=== PATIENT | male | born 1985 | race Hispanic/Latino ===

== ENCOUNTER 2019-06-06 20:52 | Emergency (ER) | payer SELFPAY ==
[2019-06-06] MEDS ORDERED: ACETAMINOPHEN 500 MG TAB ONE (21:53)
[2019-06-06 22:04] LABS: Absolute Lymphocytes (CBC) 4.3 K/uL (0.7-4.9); Basophils % 0.8 % (0-1.3); Lymphocytes % 32.6 % (15.3-44.8); MPV 10.1 fL (7.6-11.3); RBC Red Blood Cell Count 5.45 M/uL (4.33-5.43)
[2019-06-06 22:27] LABS: Potassium 3.8 mmol/L (3.5-5.1)
--- NOTE | 2019-06-06 22:59 | EDPHYS ---
Physician Documentation [facility] Name: Rolan Ac Age: 34 yrs Sex: Male : 1985 Arrival Date: 06/06/2019 Time: 20:55 Bed 13 Private MD: ED Physician Mark Chávez HPI: 06/06 21:38 This 34 yrs old Male presents to ER via Ambulatory with complaints of Cough, pkl Congestion. 21:38 The patient or guardian reports cough, with no sputum. Onset: The symptoms/episode pkl began/occurred 1 week(s) ago. Associated signs and symptoms: Pertinent positives: eyes itchy, sneezing. Historical: - Allergies: 21:02 No Known Allergies; bb - Home Meds: 21:02 metformin Oral [Active]; Lovastatin Oral [Active]; Lisinopril Oral [Active]; bb Glimepiride Oral [Active]; - PMHx: 21:02 Diabetes - NIDDM; Hypertension; bb - PSHx: 21:02 None; bb - Immunization history:: Adult Immunizations up to date. - Social history:: Smoking status: Patient/guardian denies using tobacco. - Ebola Screening: : No symptoms or risks identified at this time. ROS: 21:38 Eyes: Negative for injury, pain, redness, and discharge, ENT: Negative for injury, pkl pain, and discharge, Neck: Negative for injury, pain, and swelling, Cardiovascular: Negative for chest pain, palpitations, and edema, Respiratory: Negative for shortness of breath, cough, wheezing, and pleuritic chest pain, Abdomen/GI: Negative for abdominal pain, nausea, vomiting, diarrhea, and constipation, Back: Negative for injury and pain, : Negative for injury, bleeding, discharge, and swelling, MS/Extremity: Negative for injury and deformity, Skin: Negative for injury, rash, and discoloration, Neuro: Negative for headache, weakness, numbness, tingling, and seizure. Exam: 21:38 Head/Face: Normocephalic, atraumatic. Eyes: Pupils equal round and reactive to light, pkl extra-ocular motions intact. Lids and lashes normal. Conjunctiva and sclera are non-icteric and not injected. Cornea within normal limits. Periorbital areas with no swelling, redness, or edema. ENT: Nares patent. No nasal discharge, no septal abnormalities noted. Tympanic membranes are normal and external auditory canals are clear. Oropharynx with no redness, swelling, or masses, exudates, or evidence of obstruction, uvula midline. Mucous membranes moist. Neck: Trachea midline, no thyromegaly or masses palpated, and no cervical lymphadenopathy. Supple, full range of motion without nuchal rigidity, or vertebral point tenderness. No Meningismus. Chest/axilla: Normal chest wall appearance and motion. Nontender with no deformity. No lesions are appreciated. Cardiovascular: Regular rate and rhythm with a normal S1 and S2. No gallops, murmurs, or rubs. Normal PMI, no JVD. No pulse deficits. Respiratory: Lungs have equal breath sounds bilaterally, clear to auscultation and percussion. No rales, rhonchi or wheezes noted. No increased work of breathing, no retractions or nasal flaring. Abdomen/GI: Soft, non-tender, with normal bowel sounds. No distension or tympany. No guarding or rebound. No evidence of tenderness throughout. Back: No spinal tenderness. No costovertebral tenderness. Full range of motion. Skin: Warm, dry with normal turgor. Normal color with no rashes, no lesions, and no evidence of cellulitis. MS/ Extremity: Pulses equal, no cyanosis. Neurovascular intact. Full, normal range of motion. Neuro: Awake and alert, GCS 15, oriented to person, place, time, and situation. Cranial nerves II-XII grossly intact. Motor strength 5/5 in all extremities. Sensory grossly intact. Cerebellar exam normal. Normal gait. Vital Signs: 21:02 BP 135 / 100; Pulse 84; Resp 16 S; Temp 98.1(O); Pulse Ox 95% on R/A; Weight 95.25 kg bb (R); Height 5 ft. 3 in. (160.02 cm) (R); Pain 8/10; 22:50 BP 127 / 87; Pulse 79; Resp 16; Pulse Ox 96% on R/A; jb4 21:02 Body Mass Index 37.20 (95.25 kg, 160.02 cm) bb MDM: 21:07 Patient medically screened. pkl 22:52 Data reviewed: vital signs, nurses notes, lab test result(s), radiologic studies, plain pkl films. 10/14 21:04 Order name: Flu 06/06 21:04 Order name: Strep 06/06 21:05 Order name: Influenza Screen (A ; Complete Time: 22:46 EDMS 06/06 21:05 Order name: Group A Streptococcus Rapid Sc; Complete Time: 22:46 EDMS 06/06 21:15 Order name: Chem 7; Complete Time: 22:46 pkl 06/06 21:15 Order name: XRAY CXR (1 view); Complete Time: 01:47 pkl 06/06 21:37 Order name: Throat Culture EDMS 06/06 22:00 Order name: CBC with Automated Diff; Complete Time: 22:52 EDMS Administered Medications: 22:00 Drug: Tylenol 1000 mg Route: PO; rv 22:30 Follow up: Response: No adverse reaction; Pain is decreased jb4 23:22 Drug: Rocephin (cefTRIAXone) 1 grams Route: IM; Site: right gluteus; jb4 23:41 Follow up: Response: No adverse reaction jb4 Disposition: 06/06/19 22:58 Discharged to Home. Impression: Bronchitis. Possible early pneumonia. Diabetes. Leukocytosis. - Condition is Stable. - Prescriptions for Zithromax Z- Driss 250 mg Oral Tablet - take 1 tablet by ORAL route as directed for 5 days Day 1 - take two (2) tablets one time. Day 2, 3, 4 , 5 take one (1) tablet once daily.; 6 tablet. Guaifenesin AC 10- 100 mg/5 mL Oral Liquid - take 10 milliliters by ORAL route every 8 hours As needed; 120 milliliter. - Medication Reconciliation Form, Thank You Letter, Antibiotic Education, Prescription Opioid Use form. - Follow up: Private Physician; When: 2 - 3 days; Reason: Re-evaluation by your physician. - Problem is new. - Symptoms are unchanged. Signatures: Dispatcher [employer] EDMS Mark Chávez MD MD pkl Leah Espinal, TERRY RN Reddy Elizalde, RN RN jb4 Aleks Garcia, RN RN rv Corrections: (The following items were deleted from the chart) 22:50 21:15 CBC+H.LAB.BRZ ordered. EDMS EDMS 22:50 22:46 CBC+H.LAB.BRZ reviewed. pkl EDMS 23:42 22:58 06/06/2019 22:58 Discharged to Home. Impression: Bronchitis. Possible early jb4 pneumonia. Diabetes. Leukocytosis. Condition is Stable. Forms are Medication Reconciliation Form, Thank You Letter, Antibiotic Education, Prescription Opioid Use. Follow up: Private Physician; When: 2 - 3 days; Reason: Re-evaluation by your physician. Problem is new. Symptoms are unchanged. pkl
--- NOTE | 2019-06-06 22:59 | ER ---
Nurse's Notes [facility] Name: Rolan Ac Age: 34 yrs Sex: Male : 1985 Arrival Date: 06/06/2019 Time: 20:55 Bed 13 Private MD: Diagnosis: Bronchitis. Possible early pneumonia. Diabetes. Leukocytosis Presentation: 06/06 21:00 Presenting complaint: Patient states: he has been having cold type symptoms for approx bb a week with runny nose, cough, sore throat and sneezing, has been taking OTC medications with no relief now he is having difficulty breathing with chest pain and a headache. Transition of care: patient was not received from another setting of care. Resp Distress? No respiratory distress is noted at this time. Onset of symptoms was May 30, 2019. Risk Assessment: Do you want to hurt yourself or someone else? Patient reports no desire to harm self or others. Initial Sepsis Screen: Does the patient meet any 2 criteria? No. Patient's initial sepsis screen is negative. Does the patient have a suspected source of infection? No. Patient's initial sepsis screen is negative. Care prior to arrival: None. 21:00 Method Of Arrival: Ambulatory bb 21:00 Acuity: SHAKILA 4 bb Triage Assessment: 21:02 General: Appears in no apparent distress. Behavior is calm, cooperative. Pain: bb Complains of pain in head and chest pain Pain currently is 8 out of 10 on a pain scale. Neuro: Level of Consciousness is awake, alert, obeys commands, Oriented to person, place, time, situation. Cardiovascular: No deficits noted. Respiratory: Respiratory effort is even, unlabored, Respiratory pattern is regular, Breath sounds are clear bilaterally. GI: No signs and/or symptoms were reported involving the gastrointestinal system. Derm: Skin is pink, warm \T\ dry. Musculoskeletal: Circulation, motion, and sensation intact. Historical: - Allergies: 21:02 No Known Allergies; bb - Home Meds: 21:02 metformin Oral [Active]; Lovastatin Oral [Active]; Lisinopril Oral [Active]; bb Glimepiride Oral [Active]; - PMHx: 21:02 Diabetes - NIDDM; Hypertension; bb - PSHx: 21:02 None; bb - Immunization history:: Adult Immunizations up to date. - Social history:: Smoking status: Patient/guardian denies using tobacco. - Ebola Screening: : No symptoms or risks identified at this time. Screenin:43 Abuse screen: Denies threats or abuse. Denies injuries from another. Nutritional rv screening: No deficits noted. Tuberculosis screening: No symptoms or risk factors identified. Fall Risk None identified. Assessment: 21:42 General: Appears in no apparent distress. comfortable, Behavior is calm, cooperative. rv Pain: Denies pain. Neuro: Level of Consciousness is awake, alert, obeys commands, Oriented to person, place, time, situation. Cardiovascular: Patient's skin is warm and dry. Respiratory: Airway is patent. Respiratory: Breath sounds are clear bilaterally. GI: No signs and/or symptoms were reported involving the gastrointestinal system. : No signs and/or symptoms were reported regarding the genitourinary system. EENT: No signs and/or symptoms were reported regarding the EENT system. Derm: Skin is intact. Musculoskeletal: No signs and/or symptoms reported regarding the musculoskeletal system. 22:50 Reassessment: Patient appears in no apparent distress at this time. Patient and/or jb4 family updated on plan of care and expected duration. Pain level reassessed. Patient is alert, oriented x 3, equal unlabored respirations, skin warm/dry/pink. 23:22 Reassessment: Patient appears in no apparent distress at this time. Patient and/or jb4 family updated on plan of care and expected duration. Pain level reassessed. Patient is alert, oriented x 3, equal unlabored respirations, skin warm/dry/pink. PT verbalized understanding of d/c and follow up instructions. D/c pending shot time. Vital Signs: 21:02 BP 135 / 100; Pulse 84; Resp 16 S; Temp 98.1(O); Pulse Ox 95% on R/A; Weight 95.25 kg bb (R); Height 5 ft. 3 in. (160.02 cm) (R); Pain 8/10; 22:50 BP 127 / 87; Pulse 79; Resp 16; Pulse Ox 96% on R/A; jb4 21:02 Body Mass Index 37.20 (95.25 kg, 160.02 cm) bb ED Course: 20:55 Patient arrived in ED. ds1 21:01 Triage completed. bb 21:02 Arm band placed on Patient placed in an exam room, on pulse oximetry. flu and strep bb swab obtained and sent to lab. Family accompanied patient. 21:07 Mark Chávez MD is Attending Physician. geronimo 21:42 Aleks Garcia, TERRY is Primary Nurse. rv 21:43 Call light in reach. Cardiac monitoring not applicable on this patient. rv 21:43 No provider procedures requiring assistance completed. Patient did not have IV access rv during this emergency room visit. 21:54 Chem 7 Sent. rv 22:06 XRAY CXR (1 view) In Process Unspecified. EDMS Administered Medications: 22:00 Drug: Tylenol 1000 mg Route: PO; rv 22:30 Follow up: Response: No adverse reaction; Pain is decreased jb4 23:22 Drug: Rocephin (cefTRIAXone) 1 grams Route: IM; Site: right gluteus; jb4 23:41 Follow up: Response: No adverse reaction jb4 Outcome: 22:58 Discharge ordered by . pkjr 23:40 Discharged to home ambulatory, with family. jb4 23:40 Condition: stable 23:40 Discharge instructions given to patient, family, Instructed on discharge instructions, follow up and referral plans. medication usage, Demonstrated understanding of instructions, follow-up care, medications, Prescriptions given X 2. 23:42 Patient left the ED. jb4 Signatures: Dispatcher [employer] EDMS Mark Chávez MD MD pkl [place], Demi ds1 Leah Espinal RN RN Reddy Elizalde RN RN jb4 Aleks Garcia, TERRY RN rv
[2019-06-06] MEDS ORDERED: CEFTRIAXONE 1000 MG/VIAL ONE (23:12)
[2019-06-06] MEDS ORDERED: WATER FOR INJ,STERILE 10 ML ONE (23:12)
--- NOTE | 2019-06-06 23:39 | RAD REPORT ---
EXAM DESCRIPTION: RAD - Chest Single View - 06/06/2019 10:05 pm CLINICAL HISTORY: COUGH Chest pain. COMPARISON: Chest Single View dated 01/03/2017; CHEST PA AND LAT 2 VIEW dated 06/10/2012 FINDINGS: Portable technique limits examination quality. The lungs are grossly clear. The heart is normal in size. No displaced fractures. IMPRESSION: No acute intrathoracic process suspected.
[2019-06-07 01:22] VITALS: TEMP 98.1
[2019-06-07 01:23] VITALS: BP 127/87; O2SAT 96
== END 2019-06-06 23:42 | disposition home or self-care (01) ==
LOC: ER 20:52
DX: J40 Bronchitis, not specified as acute or chronic (principal); D72.829 Elevated white blood cell count, unspecified; E11.9 Type 2 diabetes mellitus without complications; I10 Essential (primary) hypertension
CPT/HCPCS: 71045; 80048; 85025; 87070; 87081; 87804; 96372; 99284

== ENCOUNTER → 2023-11-05 | Emergency (ER) | payer SELFPAY ==
[~2023-11-05] MED LIST: ACETAMINOPHEN 500 MG TAB ONE; DIPHENHYDRAMINE 50 MG/ML VIAL ONE; KETOROLAC 30 MG/ML INJ ONE; METOCLOPRAMIDE 10 MG/2mL INJ ONE; NA CHLORIDE 0.9% 1,000 ML ONE; ONDANSETRON 4 MG/2 ML VIAL ONE; dexAMETHasone 10 MG/ML VIAL ONE
--- OUTSIDE RECORDS SUMMARY | 2023-11-05 18:20 | XMS REPORT | Continuity of Care Document ---
Author Name Unknown Address [address] [facility] [address] [place] [address] [facility] Address [address] [facility] [address] [place] [address] Care Team Providers Care Cell Stripper Final Name Role Phone Unavailable Unavailable Unavailable Encounters Start Date/Time End Date/Time Encounter Type Admission Type Attending Clinicians Care Facility Care Department Encounter ID Source 2023-11-02 08:38:38 2023-11-02 08:38:38 Outpatient SFA SFA [id number] Matthew Prado 2023-10-09 14:48:36 2023-10-09 14:48:36 Outpatient SFA SFA 6 Matthew Prado 2023-10-02 14:21:16 2023-10-02 14:21:16 Outpatient SFA SFA [id number] Matthew Prado 2023-06-08 14:40:05 2023-06-08 14:40:05 Outpatient SFA SFA [id number] Matthew Prado 2023-05-11 11:07:16 2023-05-11 11:07:16 Outpatient SFA SFA [id number] Matthew Prado 2022-12-27 12:59:27 2022-12-27 12:59:27 Outpatient SFA SFA [id number] Matthew Prado 2022-06-06 13:33:04 2022-06-06 13:33:04 Outpatient SFA SFA [id number] Matthew Prado 2022-06-02 10:11:05 2022-06-02 10:11:05 Outpatient SFA SFA [id number] Matthew Prado Results Test Description Test Time Test Comments Results Result Co mments Source LIPID [id number] 04:41:41* Test Item Value Reference Range Interpretation Comme nts CHOLESTEROL (test code = 2210) 222 MG/DL <200 H TRIGLYCERIDES (test code = 2232) 471 MG/DL <150 H HDL CHOLESTEROL (test code = 0) 35 MG/DL >39 L CALC LDL CHOL (test code = 2237) (NOTE) MG/DL <100 UNABLE TO CALCUL ATE A VALID LDL CHOLESTEROL WHEN THE TRIGLYCERIDEVALUE IS GREATER THAN 400 MG/DL.UNABLE TO CALCULATE A VALID LDL CHOLESTEROL WHEN THE TRIGLYCERIDEVALUE IS GREATER THAN 400 MG/DL. NOTE: CALCULATED LDL IS BASED ON DU-WONG METHOD WHICHINCLUDES ADJUSTABLE TRIGLYCERIDE:VLDL CHOLESTEROL RATIO.THIS FACTOR VARIES BY MEASURED TRIGLYCERIDE AND NON-HDLCHOLESTEROL CONCENTRATIONS WITH INCREASED CALCULATED LDL SEENIN HIGHER TRIGLYCERIDE OR LOWER NON-HDL SPECIMENS. FOR MOREINFORMATION, SEE CLIENT ANNOUNCEMENT AT [email or web address] CalcLDL-C RISK RATIO LDL/HDL (test code = 2237) (NOTE) RATIO <3.55 UNABLE TO JESSICA CULATE COMPREHENSIVE METABOLIC [id number] 04:41:41* Test Item Value Reference Range Interpretation Comme nts GLUCOSE (test code = 2217) 511 MG/DL 70-99 HH RESULTS RECHECKE D AND VERIFIED BUN (test code = 2207) 14 MG/DL 6-20 CREATININE (test code = 2213) 0.90 MG/DL 0.80-1.40 eGFR (2020 CKD-EPI) (test code = 00602) 114 ML/MIN/1.73 >60 CALC BUN/CREAT (test code = 223) 16 RATIO 6-28 SODIUM (test code = 2230) 134 MEQ/L 133-146 POTASSIUM (test code = 2228) 4.0 MEQ/L 3.5-5.4 CHLORIDE (test code = 2215) 95 MEQ/L 95-107 CARBON DIOXIDE (test code = 220) 22 MEQ/L 19-31 CALCIUM (test code = 2208) 9.7 MG/DL 8.5-10.5 PROTEIN, TOTAL (test code = 2228) 7.5 G/DL 6.1-8.3 ALBUMIN (test code = 2200) 4.5 G/DL 3.5-5.2 CALC GLOBULIN (test code = 224) 3.0 G/DL 1.9-3.7 CALC A/G RATIO (test code = 2234) 1.5 RATIO 1.0-2.6 BILIRUBIN, TOTAL (test code = 2207) 0.3 MG/DL <=1.2 ALKALINE PHOSPHATASE (test code = 2204) 139 U/L 40-117 H AST (test code = 2218) 26 U/L 9-50 ALT (test code = 2219) 74 U/L 5-50 H HEMOGLOBIN [id number] 03:06:19* Test Item Value Reference Range Interpretation Comme nts HEMOGLOBIN A1c (test code = 21427) 11.6 % 4.2-5.6 H [employer]ATION GUIDELINES FOR HGB A1C: PREDIABETES/INCREASED RISK . . . . . . . 5.7-6.4% DIAGNOSIS OF DIABETES . . . . . . . . . >=6.5% WITH CONFIRMATION OR APPROPRIATE SYMPTOMS NOTE: ASSAY MAY BE AFFECTED BY HEMOGLOBINOPATHIES (SICKLE CELL ANEMIA, S-C DISEASE, OTHERS) OR ARTIFICIALLY LOWERED BY DECREASED RED CELL SURVIVAL (HEMOLYTIC ANEMIAS, BLOOD LOSS, ETC.). CONSIDER ALTERNATE TESTING OR LABORATORY CONSULTATION. CBC W/AUTO DIFF WITH [id number] 02:08:04* Test Item Value Reference Range Interpretation Comme nts WBC (test code = 1001) 9.1 K/UL 3.5-11.0 RBC (test code = 1002) 5.68 M/UL 4.50-6.10 HEMOGLOBIN (test code = 1003) 14.7 G/DL 13.5-17.0 HEMATOCRIT (test code = 1004) 45.0 % 40.0-51.0 MCV (test code = 1005) 79.2 fL 80.0-99.0 L MCH (test code = 1006) 25.9 PG 25.0-33.0 MCHC (test code = 1007) 32.7 G/DL 31.0-36.0 RDW (test code = 1038) 13.3 % 11.5-15.0 NEUTROPHILS (test code = 1008) 61.1 % LYMPHOCYTES (test code = 1010) 30.2 % MONOCYTES (test code = 1011) 5.5 % EOSINOPHILS (test code = 1012) 2.8 % BASOPHILS (test code = 1013) 0.3 % IMMATURE GRANULOCYTES (test code = 1036) 0.1 % NUCLEATED RBCS (test code = 1065) 0.0 /100 WBC'S See_Comment [Automated [employer]] The system which generated this result transmitted reference range: 0.0. The reference range was not used to interpret this result as normal/abnormal. PLATELET COUNT (test code = 1015) 228 K/UL 130-400 ABSOLUTE NEUTROPHILS (test code = 1066) 5.58 K/UL 1.50-7.50 ABSOLUTE LYMPHOCYTES (test code = 1067) 2.76 K/UL 1.00-4.00 ABSOLUTE MONOCYTES (test code = 1068) 0.50 K/UL 0.20-1.00 ABSOLUTE EOSINOPHILS (test code = 1040) 0.26 K/UL 0.00-0.50 ABSOLUTE BASOPHILS (test code = 1069) 0.03 K/UL 0.00-0.20 ABS IMMATURE GRANULOCYTES (test code = 1020) 0.01 K/UL 0.00-0.10 ABS NUCLEATED RBCS (test code = 83429) 0.00 K/UL 0.00-0.11 LIPID [id number] 02:11:19* Test Item Value Reference Range Interpretation Comme nts CHOLESTEROL (test code = 2210) 154 MG/DL <200 TRIGLYCERIDES (test code = 2232) 265 MG/DL <150 H HDL CHOLESTEROL (test code = 2220) 42 MG/DL >39 CALC LDL CHOL (test code = 2237) 77 MG/DL <100 NOTE: CALCULATED LDL IS BASED ON DU-WONG METHOD WHICHINCLUDES ADJUSTABLE TRIGLYCERIDE:VLDL CHOLESTEROL RATIO.THIS FACTOR VARIES BY MEASURED TRIGLYCERIDE AND NON-HDLCHOLESTEROL CONCENTRATIONS WITH INCREASED CALCULATED LDL SEENIN HIGHER TRIGLYCERIDE OR LOWER NON-HDL SPECIMENS. FOR MOREINFORMATION, SEE CLIENT ANNOUNCEMENT AT [email or web address] RISK RATIO LDL/HDL (test code = 2238) 1.83 RATIO <3.55 COMPREHENSIVE METABOLIC [id number] 02:11:19* Test Item Value Reference Range Interpretation Comme nts GLUCOSE (test code = 2217) 264 MG/DL 70-99 H BUN (test code = 2208) 12 MG/DL 6-20 CREATININE (test code = 2214) 0.81 MG/DL 0.80-1.40 eGFR (2020 CKD-EPI) (test code = 54768) 118 ML/MIN/1.73 >60 CALC BUN/CREAT (test code = 2234) 15 RATIO 6-28 SODIUM (test code = 2230) 143 MEQ/L 133-146 POTASSIUM (test code = 8) 4.3 MEQ/L 3.5-5.4 CHLORIDE (test code = 5) 104 MEQ/L 95-107 CARBON DIOXIDE (test code = 6) 25 MEQ/L 19-31 CALCIUM (test code = 2208) 9.6 MG/DL 8.5-10.5 PROTEIN, TOTAL (test code = 2228) 7.4 G/DL 6.1-8.3 ALBUMIN (test code = 2200) 4.4 G/DL 3.5-5.2 CALC GLOBULIN (test code = 0) 3.0 G/DL 1.9-3.7 CALC A/G RATIO (test code = 2233) 1.5 RATIO 1.0-2.6 BILIRUBIN, TOTAL (test code = 2206) 0.3 MG/DL See_Comment [Automated me ssage] The system which generated this result transmitted reference range: <=1.2. The reference range was not used to interpret this result as normal/abnormal. ALKALINE PHOSPHATASE (test code = 2203) 127 U/L 40-112 H AST (test code = 8) 20 U/L 9-50 ALT (test code = 9) 45 U/L 5-50 UNLESS OTHERWISE INDICATED, ALL TESTING PERFORMED AT [facility] [address] [place] [address] CLIENT SOLUTIONS MANAGER: YA ESPANA M.D. IA NUMBER [id number] [facility] [place]. [id number] HEMOGLOBIN [id number] 03:09:52* Test Item Value Reference Range Interpretation Comme nts HEMOGLOBIN A1c (test code = 95900) 7.9 % 4.2-5.6 H [employer]IATION GUIDELINES FOR HGB A1C: PREDIABETES/INCREASED RISK . . . . . . . 5.7-6.4% DIAGNOSIS OF DIABETES . . . . . . . . . >=6.5% WITH CONFIRMATION OR APPROPRIATE SYMPTOMS NOTE: ASSAY MAY BE AFFECTED BY HEMOGLOBINOPATHIES (SICKLE CELL ANEMIA, S-C DISEASE, OTHERS) OR ARTIFICIALLY LOWERED BY DECREASED RED CELL SURVIVAL (HEMOLYTIC ANEMIAS, BLOOD LOSS, ETC.). CONSIDER ALTERNATE TESTING OR LABORATORY CONSULTATION. HIV 1/2 4TH GEN, RFLX [id number] 03:19:15* Test Item Value Reference Range Interpretation Comme nts HIV 1/2 4TH GEN, RFLX CONF ( test code = 3514) NON-REACTIVE NON-REACTIVE COMPREHENSIVE METABOLIC [id number] 03:30:38* Test Item Value Reference Range Interpretation Comme nts GLUCOSE (test code = 7) 131 MG/DL 70-99 H BUN (test code = 2207) 11 MG/DL 6-20 CREATININE (test code = 221) 0.80 MG/DL 0.80-1.40 eGFR (2020 CKD-EPI) (test code = 48379) 118 ML/MIN/1.73 >60 CALC BUN/CREAT (test code = 5) 14 RATIO 6-28 SODIUM (test code = 223) 142 MEQ/L 133-146 POTASSIUM (test code = 2228) 4.4 MEQ/L 3.5-5.4 CHLORIDE (test code = 2214) 103 MEQ/L 95-107 CARBON DIOXIDE (test code = 2205) 23 MEQ/L 19-31 CALCIUM (test code = 2209) 9.4 MG/DL 8.5-10.5 PROTEIN, TOTAL (test code = 2228) 7.7 G/DL 6.1-8.3 ALBUMIN (test code = 2200) 4.6 G/DL 3.5-5.2 CALC GLOBULIN (test code = 2240) 3.1 G/DL 1.9-3.7 CALC A/G RATIO (test code = 223) 1.5 RATIO 1.0-2.6 BILIRUBIN, TOTAL (test code = 2206) 0.6 MG/DL See_Comment [Automated me ssage] The system which generated this result transmitted reference range: <=1.2. The reference range was not used to interpret this result as normal/abnormal. ALKALINE PHOSPHATASE (test code = 4) 101 U/L 40-112 AST (test code = 2218) 21 U/L 9-50 ALT (test code = 2219) 51 U/L 5-50 H LIPID [id number] 03:30:38* Test Item Value Reference Range Interpretation Comme nts CHOLESTEROL (test code = 0) 125 MG/DL <200 TRIGLYCERIDES (test code = 2232) 105 MG/DL <150 HDL CHOLESTEROL (test code = 2220) 41 MG/DL >39 CALC LDL CHOL (test code = 2237) 65 MG/DL <100 NOTE: CALCULATED LDL IS BASED ON DU-WONG METHOD WHICHINCLUDES ADJUSTABLE TRIGLYCERIDE:VLDL CHOLESTEROL RATIO.THIS FACTOR VARIES BY MEASURED TRIGLYCERIDE AND NON-HDLCHOLESTEROL CONCENTRATIONS WITH INCREASED CALCULATED LDL SEENIN HIGHER TRIGLYCERIDE OR LOWER NON-HDL SPECIMENS. FOR MOREINFORMATION, SEE CLIENT ANNOUNCEMENT AT [email or web address] RISK RATIO LDL/HDL (test code = 2238) 1.59 RATIO <3.55 UNLESS OTHERW ISE INDICATED, ALL TESTING PERFORMED [employer] [employer]. [address] [place] [id number] CLIENT SOLUTIONS MANAGER: CASSANDRA CONKLIN M.D. CLIA NUMBER [id number] [place]. [id number] HEMOGLOBIN [id number] 04:27:29* Test Item Value Reference Range Interpretation Comme nts HEMOGLOBIN A1c (test code = 78663) 8.6 % 4.2-5.6 H [employer] S ASSOCIATION GUIDELINES FOR HGB A1C: PREDIABETES/INCREASED RISK . . . . . . . 5.7-6.4% DIAGNOSIS OF DIABETES . . . . . . . . . >=6.5% WITH CONFIRMATION OR APPROPRIATE SYMPTOMS NOTE: ASSAY MAY BE AFFECTED BY HEMOGLOBINOPATHIES (SICKLE CELL ANEMIA, S-C DISEASE, OTHERS) OR ARTIFICIALLY LOWERED BY DECREASED RED CELL SURVIVAL (HEMOLYTIC ANEMIAS, BLOOD LOSS, ETC.). CONSIDER ALTERNATE TESTING OR LABORATORY CONSULTATION. ALBUMIN/CREATININE RATIO, URINE, [id number] 06:47:14* Test Item Value Reference Range Interpretation Comme nts CREATININE, URINE, RANDOM (test code = 2072) 180.0 MG/DL NOT ESTAB ALBUMIN, URINE, RANDOM (test code = 97881) 2.1 MG/DL NOT ESTAB CALC ALBUMIN/CREAT, RND (test code = 42184) 12 MG/G <30 Note: Albumin/Cr eatinine ratio reference interval reflects ADA and NKF guidelines. UNLESS OTHERWISE INDICATED, ALL TESTING PERFORMED [employer] [facility] [employer] [address] [place] [address] CLIENT SOLUTIONS MANAGER: CASSANDRA CONKLIN M.D. CLIA NUMBER [id number] [place]. [id number] LIPID [id number] 04:47:15* Test Item Value Reference Range Interpretation Comme nts CHOLESTEROL (test code = 2210) 143 MG/DL <200 TRIGLYCERIDES (test code = 2232) 118 MG/DL <150 HDL CHOLESTEROL (test code = 2220) 43 MG/DL >39 CALC LDL CHOL (test code = 2237) 79 MG/DL <100 NOTE: CALCULATED LDL IS BASED ON DU-WONG METHOD WHICHINCLUDES ADJUSTABLE TRIGLYCERIDE:VLDL CHOLESTEROL RATIO.THIS FACTOR VARIES BY MEASURED TRIGLYCERIDE AND NON-HDLCHOLESTEROL CONCENTRATIONS WITH INCREASED CALCULATED LDL SEENIN HIGHER TRIGLYCERIDE OR LOWER NON-HDL SPECIMENS. FOR MOREINFORMATION, SEE CLIENT ANNOUNCEMENT AT [email or web address] RISK RATIO LDL/HDL (test code = 2238) 1.84 RATIO <3.55 COMPREHENSIVE METABOLIC [id number] 04:47:15* Test Item Value Reference Range Interpretation Comme nts GLUCOSE (test code = 2217) 188 MG/DL 70-99 H BUN (test code = 2208) 8 MG/DL 6-20 CREATININE (test code = 2214) 0.73 MG/DL 0.80-1.40 L eGFR (2020 CKD-EPI) (test code = 20759) 122 ML/MIN/1.73 >60 CALC BUN/CREAT (test code = 2235) 11 RATIO 6-28 SODIUM (test code = 223) 141 MEQ/L 133-146 POTASSIUM (test code = 2228) 4.0 MEQ/L 3.5-5.4 CHLORIDE (test code = 2215) 102 MEQ/L 95-107 CARBON DIOXIDE (test code = 2206) 25 MEQ/L 19-31 CALCIUM (test code = 2209) 9.3 MG/DL 8.5-10.5 PROTEIN, TOTAL (test code = 222) 7.9 G/DL 6.1-8.3 ALBUMIN (test code = 2201) 4.5 G/DL 3.5-5.2 CALC GLOBULIN (test code = 2240) 3.4 G/DL 1.9-3.7 CALC A/G RATIO (test code = 2234) 1.3 RATIO 1.0-2.6 BILIRUBIN, TOTAL (test code = 2206) 0.6 MG/DL See_Comment [Automated me ssage] The system which generated this result transmitted reference range: <=1.2. The reference range was not used to interpret this result as normal/abnormal. ALKALINE PHOSPHATASE (test code = 2204) 110 U/L 40-112 AST (test code = 2218) 28 U/L 9-50 ALT (test code = 2219) 66 U/L 5-50 H HEMOGLOBIN [id number] 03:36:38* Test Item Value Reference Range Interpretation Comme nts HEMOGLOBIN A1c (test code = 85288) 9.7 % 4.2-5.6 H [employer] ASS[employer]IATION GUIDELINES FOR HGB A1C: PREDIABETES/INCREASED RISK . . . . . . . 5.7-6.4% DIAGNOSIS OF DIABETES . . . . . . . . . >=6.5% WITH CONFIRMATION OR APPROPRIATE SYMPTOMS NOTE: ASSAY MAY BE AFFECTED BY HEMOGLOBINOPATHIES (SICKLE CELL ANEMIA, S-C DISEASE, OTHERS) OR ARTIFICIALLY LOWERED BY DECREASED RED CELL SURVIVAL (HEMOLYTIC ANEMIAS, BLOOD LOSS, ETC.). CONSIDER ALTERNATE TESTING OR LABORATORY CONSULTATION.
--- NOTE | 2023-11-05 19:20 | RAD REPORT ---
EXAM DESCRIPTION: CT - Head Brain Wo Cont - 11/05/2023 7:02 pm CLINICAL HISTORY: HEADACHE Headache, drowsiness COMPARISON: <Comparisons> TECHNIQUE: All CT scans are performed using dose optimization technique as appropriate and may inclu de automated exposure control or mA/KV adjustment according to patient size. FINDINGS: No intracranial hemorrhage, hydrocephalus or extra-axial fluid collection.No areas of brai n edema or evidence of midline shift. The paranasal sinuses and mastoids are clear. The calvarium is intact. IMPRESSION: No acute intracranial abnormality.
[2023-11-05 20:21] LABS: Absolute Eosinophils 0.1 K/uL (0-0.5); Absolute Lymphocytes (CBC) 1.6 K/uL (0.7-4.9); Absolute Monocytes 0.6 K/uL (0.1-1.3); Absolute Neutrophil 7.1 K/uL (1.8-8.0); Basophils % 0.2 % (0-1.3); Eosinophils % 1.4 % (0-4.4); Hematocrit 39.8 % (39.6-49.0); Hemoglobin 13.5 g/dL (13.6-17.9); Lymphocytes % 17.4 % (15.3-44.8); MCH 25.5 pg (27.0-35.0); MCHC 33.8 g/dL (32.0-36.0); MCV 75.2 fL (80-100); MPV 9.3 fL (7.6-11.3); Platelets 211 thou/uL (152-406); RBC Red Blood Cell Count 5.28 M/uL (4.33-5.43); Red Cell Distribution Width 14.2 % (12.1-15.2)
[2023-11-05 20:43] LABS: Albumin 3.4 g/dL (3.4-5.0); Albumin/Globulin Ratio 0.8 (1.1-1.8); Anion Gap 6.3 mEq/L (5.0-15.0); Bilirubin Total 0.8 mg/dL (0.2-1.0); Globulin 4.2 g/dL (2.3-3.5); Potassium 3.3 mEq/L (3.5-5.1); Protein, Total 7.6 g/dL (6.4-8.2)
[2023-11-05 21:20] LABS: Specific Gravity 1.011 (1.005-1.030); Urine Bilirubin NEGATIVE (Negative); Urine Blood Negative (Negative); Urine Clarity Clear (Clear); Urine Color Light-Yellow (Yellow); Urine Glucose 2+ (Negative); Urine Ketones NEGATIVE (Negative); Urine Microscopic Reflex YN NO UMIC; Urine Nitrite NEGATIVE (Negative); Urine Protein NEGATIVE (Negative); Urine Urobilinogen Normal (Normal)
--- NOTE | 2023-11-05 22:12 | EDPHYS ---
Physician Documentation [facility] Name: Rolan Ac Age: 38 yrs Sex: Male : 1985 Arrival Date: 11/05/2023 Time: 18:17 Bed 9 Private MD: ED Physician Francis Alonzo HPI: 11/04 19:00 This 38 yrs old Male presents to ER via Ambulatory with complaints of Headache cp > 24hrs Old. 19:00 The patient complains of pain to the left side of the back of head, left occipital cp area, left base of the skull, right side of the back of head, right occipital area and right base of the skull. The patient describes the headache as aching, constant. Onset: The symptoms/episode began/occurred 4 day(s) ago. Associated signs and symptoms: Pertinent positives: nausea, vomiting, chills, Pertinent negatives: altered mental status, fever, rash, sinus congestion, sinus tenderness, vision changes. Severity of symptoms: in the emergency department the pain is unchanged, despite home interventions. Headache History: The patient has had previous headaches and this one is different than previous episodes. Historical: - Allergies: 18:28 No Known Allergies; iw - PMHx: 18:28 Diabetes - NIDDM; Hypertension; Hypercholesterolemia; iw - PSHx: 18:28 None; iw - Immunization history:: Client reports receiving the 1st dose of the Covid vaccine, Flu vaccine is not up to date. - Social history:: Smoking status: Patient denies any tobacco usage or history of. ROS: 19:05 Constitutional: Positive for chills, Negative for body aches, fever, poor PO intake, cp 19:05 Eyes: Negative for injury, pain, redness, and discharge, cp 19:05 ENT: Negative for drainage from ear(s), ear pain, sore throat, difficulty swallowing, difficulty handling secretions, 19:05 Cardiovascular: Negative for chest pain, edema, palpitations, 19:05 Respiratory: Negative for cough, shortness of breath, wheezing, 19:05 Abdomen/GI: Positive for nausea and vomiting, Negative for abdominal pain, diarrhea, constipation, 19:05 : Negative for urinary symptoms, 19:05 Skin: Negative for cellulitis, rash, 19:05 Neuro: Positive for headache, Negative for altered mental status, dizziness, numbness, syncope, weakness, 19:05 All other systems are negative, Exam: 19:10 Constitutional: The patient appears in no acute distress, alert, awake, cp non-diaphoretic, non-toxic, well developed, well nourished, 19:10 Head/Face: Normocephalic, atraumatic. cp 19:10 Eyes: Periorbital structures: appear normal, Pupils: equal, round, and reactive to light and accomodation, Extraocular movements: intact throughout, Conjunctiva: normal, no exudate, no injection, Sclera: no appreciated abnormality, Lids and lashes: appear normal, bilaterally, 19:10 ENT: External ear(s): are unremarkable, Ear canal(s): are normal, clear, TM's: dullness, bilaterally, Nose: is normal, Mouth: Lips: moist, Oral mucosa: pink and intact, moist, Posterior pharynx: is normal, airway is patent, no erythema, no exudate, 19:10 Neck: ROM/movement: pain, that is mild, with flexion, limited range of motion, is not appreciated, Meningeal signs: are not present, nuchal rigidity, is not appreciated, 19:10 Chest/axilla: Inspection: normal, 19:10 Cardiovascular: Rate: tachycardic, Rhythm: regular, Edema: is not appreciated, JVD: is not appreciated, 19:10 Respiratory: the patient does not display signs of respiratory distress, Respirations: normal, no use of accessory muscles, no retractions, no shallow respirations, Breath sounds: are clear throughout, no decreased breath sounds, no stridor, no wheezing, 19:10 Abdomen/GI: Inspection: abdomen appears normal, Palpation: abdomen is soft and non-tender, in all quadrants, 19:10 Back: pain, is absent, ROM is normal, 19:10 Skin: cellulitis, is not appreciated, no rash present. 19:10 Neuro: Orientation: to person, place \T\ time. Mentation: is normal, Cerebellar function: Motor: moves all fours, strength is normal, Sensation: no obvious gross deficits, Vital Signs: 18:26 BP 127 / 89; Pulse 106; Resp 18; Temp 98.2; Pulse Ox 100% ; Weight 94.8 kg; Height 5 iw ft. 5 in. ; Pain 8/10; 20:00 BP 119 / 61; Pulse 69; Resp 17; Pulse Ox 100% ; jj7 21:00 BP 121 / 68; Pulse 72; Resp 16; Pulse Ox 100% on R/A; pf1 22:00 BP 115 / 72; Pulse 68; Resp 16; Temp 98.3; Pulse Ox 99% on R/A; Pain 0/10; pf1 18:26 Body Mass Index 34.78 (94.80 kg, 165.1 cm) iw 18:26 Pain Scale: Adult iw 22:00 Pain Scale: Adult pf1 MDM: 18:37 Patient medically screened. 20:00 Differential diagnosis: cluster headache, hypoglycemia, hyponatremia, intracerebral cp hemorrhage, meningoencephalitis, migraine, sinusitis, tension headache. 22:10 Data reviewed: vital signs, nurses notes, lab test result(s), radiologic studies, CT cp scan, and as a result, I will discharge patient. 22:10 I considered the following discharge prescriptions or medication management in the emergency department Medications were administered in the Emergency Department. See MAR. Care significantly affected by the following chronic conditions: Diabetes, Hypertension. Counseling: I had a detailed discussion with the patient and/or guardian regarding the historical points, exam findings, and any diagnostic results supporting the discharge/admit diagnosis, lab results, radiology results, to return to the emergency department if symptoms worsen or persist or if there are any questions or concerns that arise at home. Response to treatment: the patient's symptoms have markedly improved after treatment, and as a result, I will discharge patient. 11/04 19:03 Order name: CBC with Diff; Complete Time: 21:39 11/04 21:39 Interpretation: Normal except: HGB 13.5; MCV 75.2; MCH 25.5; BETH% 75.0. 11/04 19:03 Order name: CMP; Complete Time: 21:39 11/04 21:40 Interpretation: Normal except: K 3.3; GLUC 187; CA 8.3; ALT 71; GLOB 4.2; A/G 0.8. 11/04 19:03 Order name: Urinalysis w/ reflexes; Complete Time: 21:39 11/04 20:39 Order name: Glucose, Ancillary Testing; Complete Time: 21:39 EDMS 11/04 21:40 Interpretation: Reviewed. 11/04 18:36 Order name: CT Head Brain wo Cont; Complete Time: 19:23 cp 11/04 19:23 Interpretation: Report reviewed. 11/04 18:36 Order name: Accucheck Blood Glucose; Complete Time: 20:26 cp 11/04 19:03 Order name: IV Saline Lock; Complete Time: 20:02 cp 11/04 19:03 Order name: Labs collected and sent; Complete Time: 20:02 cp Administered Medications: 20:02 Drug: Acetaminophen PO 1000 mg PO once Route: PO; jj7 21:00 Follow up: Response: No adverse reaction; Marked relief of symptoms; Pain is decreased pf1 20:02 Drug: NS 0.9% IV 1000 ml IV at 1 bolus Per protocol; 1000 mL bolus Route: IV; Rate: 1 jj7 bolus; Site: right antecubital; 21:00 Follow up: Response: No adverse reaction; Marked relief of symptoms; IV Status: pf1 Completed infusion; IV Intake: 1000ml 20:02 Drug: Ondansetron IVP 4 mg IVP once; over 2 minutes Route: IVP; Site: right antecubital;jj7 21:00 Follow up: Response: No adverse reaction; Marked relief of symptoms pf1 20:25 Drug: Decadron - Dexamethasone IVP 10 mg IVP once Route: IVP; Site: right antecubital; j7 21:25 Follow up: Response: No adverse reaction; Marked relief of symptoms pf1 20:25 Drug: diphenhydrAMINE IVP 25 mg IVP once Route: IVP; Site: right antecubital; jj7 21:25 Follow up: Response: No adverse reaction; Marked relief of symptoms pf1 20:26 Drug: metoCLOPramide IVP 10 mg IVP once; over 1 to 2 minutes Route: IVP; Site: right [facility] antecubital; 21:20 Follow up: Response: No adverse reaction; Marked relief of symptoms; Pain is decreased; pf1 Nausea is decreased 20:26 Drug: Ketorolac IVP 15 mg IVP once Route: IVP; Site: right antecubital; j7 21:20 Follow up: Response: No adverse reaction; Marked relief of symptoms; Pain is decreased pf1 Disposition: 11/05 16:29 Co-signature as Attending Physician, Francis Alonzo MD I reviewed the patient's care rt provided by the Advanced Practice Provider and agree with the diagnosis and treatment plan. Disposition Summary: 11/05/23 22:11 Discharge Ordered Notes: Location: Home cp Problem: new cp Symptoms: have improved cp Condition: Stable cp Diagnosis - Headache cp - Diabetes mellitus due to underlying condition with hyperglycemia cp Followup: cp - With: Private Physician - When: 2 - 3 days - Reason: Recheck today's complaints Discharge Instructions: - Discharge Summary Sheet cp - Tension Headache, Adult cp - Hyperglycemia cp - Blood Glucose Monitoring, Adult cp - Diabetes Mellitus and Nutrition, Adult cp Forms: - Medication Reconciliation Form cp - Thank You Letter cp - Antibiotic Education cp - Prescription Opioid Use cp - Patient Portal Instructions cp - Leadership Thank You Letter cp Prescriptions: - Ibuprofen 800 mg Oral Tablet - take 1 tablet ORAL route every 8 hours As needed take with food; 30 tablet; cp Refills: 0, Product Selection Permitted Signatures: Dispatcher [employer] Mariella Zamarripa RN RN iw Daniel Spence PA PA cp Johnson, Juwairiyah, RN RN jj7 Francis Alonzo MD MD rt Tiffany Mckeon RN pf1
--- NOTE | 2023-11-05 22:12 | ER ---
Nurse's Notes [facility] Name: Rolan Ac Age: 38 yrs Sex: Male : 1985 Arrival Date: 11/05/2023 Time: 18:17 Bed 9 Private MD: Diagnosis: Headache;Diabetes mellitus due to underlying condition with hyperglycemia Presentation: 11/04 18:26 Chief complaint: Parent and/or Guardian states: cold sweats, chills and bad pain to iw back of head, + n/v X 3-4 days. Coronavirus screen: Client presents with at least one sign or symptom that may indicate coronavirus-19. Ebola Screen: Patient negative for fever greater than or equal to 101.5 degrees Fahrenheit, and additional compatible Ebola Virus Disease symptoms Patient denies exposure to infectious person. Patient denies travel to an Ebola-affected area in the 21 days before illness onset. No symptoms or risks identified at this time. Initial Sepsis Screen: Does the patient meet any 2 criteria? No. Patient's initial sepsis screen is negative. Does the patient have a suspected source of infection? No. Patient's initial sepsis screen is negative. Risk Assessment: Do you want to hurt yourself or someone else? Patient reports no desire to harm self or others. Onset of symptoms was November 03, 2023. 18:26 Method Of Arrival: Ambulatory iw 18:26 Acuity: SHAKILA 3 iw Triage Assessment: 18:28 Headache History: The patient has had previous headaches. General: Appears in no iw apparent distress. Behavior is calm, cooperative. Pain: Complains of pain in back of head Pain currently is 8 out of 10 on a pain scale. Pain began 2-3 days ago. Also complains of nausea. Neuro: Level of Consciousness is awake, alert, obeys commands, Oriented to person, place, time, situation, Moves all extremities. Full function. Historical: - Allergies: 18:28 No Known Allergies; iw - PMHx: 18:28 Diabetes - NIDDM; Hypertension; Hypercholesterolemia; iw - PSHx: 18:28 None; iw - Immunization history:: Client reports receiving the 1st dose of the Covid vaccine, Flu vaccine is not up to date. - Social history:: Smoking status: Patient denies any tobacco usage or history of. Screenin:50 [facility] ED Fall Risk Assessment (Adult) History of falling in the last 3 months, jj7 including since admission No falls in past 3 months (0 pts) Confusion or Disorientation No (0 pts) Intoxicated or Sedated No (0 pts) Impaired Gait No (0 pts) Mobility Assist Device Used No (0 pt) Altered Elimination No (0 pt) Score/Fall Risk Level 0 - 2 = Low Risk Oriented to surroundings, Maintained a safe environment, Educated pt \T\ family on fall prevention, incl call for assistance when getting out of bed. Abuse screen: Denies injuries from another. Nutritional screening: No deficits noted. Tuberculosis screening: No symptoms or risk factors identified. Assessment: 19:50 General: Appears in no apparent distress. comfortable, Behavior is calm, cooperative, jj7 appropriate for age. Pain: Complains of pain in occipital area and base of the skull. Neuro: No deficits noted. 20:30 Reassessment: Patient appears in no apparent distress at this time. Patient and/or pf1 family updated on plan of care and expected duration. Pain level reassessed. Patient is alert, oriented x 3, equal unlabored respirations, skin warm/dry/pink. Patient states symptoms have improved. 21:30 Reassessment: Patient appears in no apparent distress at this time. Patient and/or pf1 family updated on plan of care and expected duration. Pain level reassessed. Patient is alert, oriented x 3, equal unlabored respirations, skin warm/dry/pink. Patient states feeling better. Patient states symptoms have improved. 22:30 Reassessment: Patient appears in no apparent distress at this time. Patient and/or pf1 family updated on plan of care and expected duration. Pain level reassessed. Patient is alert, oriented x 3, equal unlabored respirations, skin warm/dry/pink. Patient states feeling better. Patient states symptoms have improved. Vital Signs: 18:26 BP 127 / 89; Pulse 106; Resp 18; Temp 98.2; Pulse Ox 100% ; Weight 94.8 kg; Height 5 iw ft. 5 in. ; Pain 8/10; 20:00 BP 119 / 61; Pulse 69; Resp 17; Pulse Ox 100% ; jj7 21:00 BP 121 / 68; Pulse 72; Resp 16; Pulse Ox 100% on R/A; pf1 22:00 BP 115 / 72; Pulse 68; Resp 16; Temp 98.3; Pulse Ox 99% on R/A; Pain 0/10; pf1 18:26 Body Mass Index 34.78 (94.80 kg, 165.1 cm) iw 18:26 Pain Scale: Adult iw 22:00 Pain Scale: Adult pf1 ED Course: 18:20 Patient arrived in ED. ae5 18:28 Triage completed. iw 18:28 Arm band placed on. iw 18:33 Daniel Spence PA is PHCP. cp 18:33 Francis Alonzo MD is Attending Physician. cp 19:04 CT Head Brain wo Cont In Process Unspecified. EDMS 19:17 Gayathri Brunson, TERRY is Primary Nurse. jj7 19:50 Patient has correct armband on for positive identification. Bed in low position. Call jj7 light in reach. Adult w/ patient. Provided Education on: USE OF CALL [place]. 19:50 No provider procedures requiring assistance completed. jj7 20:00 Inserted saline lock: 18 gauge in right antecubital area, using aseptic technique. jj7 Blood collected. 20:02 CBC with Diff Sent. jj7 20:02 CMP Sent. jj7 21:09 Urinalysis w/ reflexes Sent. pf1 22:35 IV discontinued, intact, bleeding controlled, No redness/swelling at site. Pressure pf1 dressing applied. Administered Medications: 20:02 Drug: Acetaminophen PO 1000 mg PO once Route: PO; jj7 21:00 Follow up: Response: No adverse reaction; Marked relief of symptoms; Pain is decreased pf1 20:02 Drug: NS 0.9% IV 1000 ml IV at 1 bolus Per protocol; 1000 mL bolus Route: IV; Rate: 1 jj7 bolus; Site: right antecubital; 21:00 Follow up: Response: No adverse reaction; Marked relief of symptoms; IV Status: pf1 Completed infusion; IV Intake: 1000ml 20:02 Drug: Ondansetron IVP 4 mg IVP once; over 2 minutes Route: IVP; Site: right antecubital;jj7 21:00 Follow up: Response: No adverse reaction; Marked relief of symptoms pf1 20:25 Drug: Decadron - Dexamethasone IVP 10 mg IVP once Route: IVP; Site: right antecubital; jj7 21:25 Follow up: Response: No adverse reaction; Marked relief of symptoms pf1 20:25 Drug: diphenhydrAMINE IVP 25 mg IVP once Route: IVP; Site: right antecubital; jj7 21:25 Follow up: Response: No adverse reaction; Marked relief of symptoms pf1 20:26 Drug: metoCLOPramide IVP 10 mg IVP once; over 1 to 2 minutes Route: IVP; Site: right jj7 antecubital; 21:20 Follow up: Response: No adverse reaction; Marked relief of symptoms; Pain is decreased; pf1 Nausea is decreased 20:26 Drug: Ketorolac IVP 15 mg IVP once Route: IVP; Site: right antecubital; jj7 21:20 Follow up: Response: No adverse reaction; Marked relief of symptoms; Pain is decreased pf1 Medication: 19:50 VIS not applicable for this client. jj7 Intake: 21:00 IV: 1000ml; Total: 1000ml. pf1 Outcome: 22:11 Discharge ordered by MD. cp 22:35 Discharged to home ambulatory, with family, pf1 22:35 Condition: improved pf1 22:35 Discharge instructions given to patient, family, Instructed on discharge instructions, follow up and referral plans. Demonstrated understanding of instructions, follow-up care, medications, Prescriptions given X 22:35 Patient left the ED. pf1 Signatures: Dispatcher [employer] EDMariella Rizzo RN RN iw Page, Corey, PA PA cp Johnson, Juwairiyah, RN RN jjTiffany Hernandes RN RN pf1 Ludmila Santamaria ae5 Corrections: (The following items were deleted from the chart) 11/05 07:27 11/04 23:02 Patient left the ED. pf1 pf1
[2023-11-06 00:42] VITALS: BP 119/61; TEMP 98.2; O2SAT 100
== END ==
LOC: ER 18:17
DX: R51.9 Headache, unspecified (principal); E08.65 Diabetes mellitus due to underlying condition with hyperglycemia; R11.2 Nausea with vomiting, unspecified
CPT/HCPCS: 36415; 70450; 80053; 81003; 82947; 85025; 96361; 96374; 96375; 99284; J1100; J1200; J2405; J2765; J7030